=== PATIENT | female | born 1995 | race Caucasian/White ===

== ENCOUNTER 2017-11-05 13:06 | Observation (INO) | payer MEDICAID ==
[~2017-11-05] VITALS: Ht 167.6 cm; Wt 127.0 kg
== END 2017-11-05 14:30 | disposition home or self-care (01) ==
LOC: L&D 13:06
PROVIDERS: ADMIT Obstetrics & Gynecology; ATTEND Obstetrics & Gynecology
DX: O36.8130 Decreased fetal movements, third trimester, not applicable or unspecified (principal); Z3A.40 40 weeks gestation of pregnancy
CPT/HCPCS: 76815; 76818; 99281; G0378